=== PATIENT | female | born 1975 | race African-American/Black ===

== ENCOUNTER 2016-04-19 10:29 | Inpatient (IN) | payer MEDICAID ==
[2016-04-17 15:09] VITALS: Ht 165.1 cm; Wt 140.4 kg
[2016-04-17 15:18] VITALS: BP_SYST 140; RESP 20; TEMP 97.9
[2016-04-19] VITALS (19 sets, daily range): BP systolic 120–163; RESP 13–34; TEMP 96.9–98.6
[~2016-04-19] VITALS: Ht 165.1 cm; Wt 140.4 kg
[~2016-04-19 10:29] MED LIST: ACETAMINOPHEN 1,000 MG/100 ML IV ONE; BUPIVACAINE 0.5% PF 30 ML NERVEBLOCK ONE; DILAUDID 1 MG/ML AMP IV ONE; FAMOTIDINE 20 MG INJ IV ONE; FENTANYL 100 MCG/2 ML AMP IV ONE; GLYCOPYRROLATE 0.2 MG/ML VIAL IV ONE; LIDOCAINE 1% BUFFERED 1 ML SYR INTRADERM PRN; LIDOCAINE 2% SYR 5 ML IV ONE; MANNITOL 25% IV ONE; MIDAZOLAM 2 MG/2 ML INJ IV ONE; NEOSTIGMINE 10 MG/10 ML VIAL IV ONE; ONDANSETRON 4 MG VIAL IV ONE; PROPOFOL 20 ML VIAL IV ONE; ROCURONIUM 50 MG VIAL IV ONE; SCOPOLAMINE PATCH TRANSDERM ONE
[2016-04-19] MEDS ORDERED: CLINDAMYCIN 600 MG in DEXTROSE 5% 50 ML IV ONE (10:50)
[2016-04-19] MEDS ORDERED: LEVOFLOXACIN 500 MG/100 ML 100 ML IV ONE (10:55)
[2016-04-19] MEDS: LACT RINGERS 1,000 ML IV SCH ×2 (11:08→15:12)
[2016-04-19] MEDS ORDERED: MORPHINE 2 MG/ML SYR IV PRN (11:30)
[2016-04-19] MEDS ORDERED: DILAUDID 1 MG/ML AMP IV PRN (11:30)
[2016-04-19] MEDS ORDERED: MEPERIDINE 25 MG/ML IV PRN (11:30)
[2016-04-19] MEDS ORDERED: ONDANSETRON 4 MG VIAL IV PRN (11:30)
[2016-04-19] MEDS ORDERED: OXYCODONE 5 MG TAB PO PRN (11:30)
[2016-04-19] MEDS ORDERED: MORPHINE 4 MG/ML SYR IV PRN (11:30)
[2016-04-19] MEDS ORDERED: ACETAMINOPHEN 325 MG TAB PO PRN ×2 (14:50)
[2016-04-19] MEDS ORDERED: LORAZEPAM 2 MG/ML VIAL IV PRN (14:50)
[2016-04-19] MEDS ORDERED: PROMETHAZINE 25 MG/ML VIAL ONE (15:24)
[2016-04-19] MEDS ORDERED: PROMETHAZINE 25 MG/ML VIAL IV ONE (15:25)
[2016-04-19] MEDS: FLUOXETINE 20 MG CAP PO SCH (16:18)
[2016-04-19] MEDS: PANTOPRAZOLE 40 MG TAB PO SCH (16:20)
[2016-04-19] MEDS: MORPHINE 4 MG/ML SYR IV PRN ×3 (17:13→23:13)
[2016-04-19] MEDS: LEVOFLOXACIN 500 MG/100 ML 100 ML IV SCH (17:19)
[2016-04-19] MEDS: CLINDAMYCIN 600 MG in DEXTROSE 5% 50 ML IV SCH ×2 (18:45→23:25)
[2016-04-19] MEDS: DOCUSATE SOD 100 MG CAP PO SCH (20:15)
[2016-04-19] MEDS: BUSPIRONE HCL 15 MG TAB PO SCH (20:15)
[2016-04-19] MEDS: ONDANSETRON 4 MG VIAL IV PUSH PRN (23:13)
[2016-04-19] MEDS: SODIUM CHLORIDE 0.9% 1,000 ML IV SCH (23:25)
[2016-04-20] MEDS: MORPHINE 4 MG/ML SYR IV PRN ×8 (01:16→21:36)
[2016-04-20 03:34] VITALS: BP_SYST 116; RESP 16; TEMP 98.3
[2016-04-20] MEDS: ONDANSETRON 4 MG VIAL IV PUSH PRN ×3 (05:38→18:05)
[2016-04-20] MEDS: SODIUM CHLORIDE 0.9% 1,000 ML IV SCH (05:38)
[2016-04-20] MEDS: CLINDAMYCIN 600 MG in DEXTROSE 5% 50 ML IV SCH ×2 (05:38→11:03)
[2016-04-20] MEDS: PANTOPRAZOLE 40 MG TAB PO SCH (05:39)
[2016-04-20 07:21] VITALS: BP_SYST 121; RESP 15; TEMP 98
[2016-04-20] MEDS ORDERED: SODIUM CHLORIDE 0.9% 1,000 ML IV SCH (07:30)
[2016-04-20] MEDS: LEVOFLOXACIN 500 MG/100 ML 100 ML IV SCH (08:55)
[2016-04-20] MEDS: DOCUSATE SOD 100 MG CAP PO SCH ×2 (08:55→21:12)
[2016-04-20] MEDS: FLUOXETINE 20 MG CAP PO SCH (08:56)
[2016-04-20] MEDS ORDERED: REMOVE TRANSDERMAL PATCH TOPICAL ONE (11:25)
[2016-04-20 11:44] VITALS: BP_SYST 115; RESP 15; TEMP 98
[2016-04-20 15:56] VITALS: BP_SYST 142; RESP 15; TEMP 97.9
[2016-04-20] MEDS: OXYCODONE 5 MG TAB PO PRN ×2 (18:00→22:22)
[2016-04-20 19:21] VITALS: BP_SYST 143; RESP 16; TEMP 98.9
[2016-04-20] MEDS: BUSPIRONE HCL 15 MG TAB PO SCH (21:13)
[2016-04-20 23:12] VITALS: BP_SYST 135; RESP 18; TEMP 99.3
[2016-04-21] MEDS: MORPHINE 4 MG/ML SYR IV PRN ×8 (00:15→21:42)
[2016-04-21] MEDS: ONDANSETRON 4 MG VIAL IV PUSH PRN (00:15)
[2016-04-21] MEDS ORDERED: CHLORASEPTIC 180 ML BTL PO PRN (01:10)
[2016-04-21] MEDS: OXYCODONE 5 MG TAB PO PRN ×5 (04:11→23:12)
[2016-04-21] MEDS: PANTOPRAZOLE 40 MG TAB PO SCH (04:18)
[2016-04-21 04:30] VITALS: BP_SYST 144; RESP 18; TEMP 99
[2016-04-21 07:10] VITALS: BP_SYST 134; RESP 12; TEMP 98.6
[2016-04-21] MEDS ORDERED: D5-1/2-NS W/KCL 10MEQ/L 1,000 ML IV SCH (08:35)
[2016-04-21] MEDS: DOCUSATE SOD 100 MG CAP PO SCH ×2 (09:12→19:23)
[2016-04-21] MEDS: FLUOXETINE 20 MG CAP PO SCH (09:12)
[2016-04-21 11:06] VITALS: BP_SYST 133; RESP 16; TEMP 97.9
[2016-04-21 15:01] VITALS: BP_SYST 138; RESP 16; TEMP 98.3
[2016-04-21] MEDS: BUSPIRONE HCL 15 MG TAB PO SCH (19:22)
[2016-04-21 20:10] VITALS: BP_SYST 122; RESP 16; TEMP 98.1
[2016-04-21] MEDS ORDERED: D5-1/2-NS W/KCL 20MEQ/L 1,000 ML IV SCH (20:15)
[2016-04-22 00:12] VITALS: BP_SYST 142; RESP 16; TEMP 98.3
[2016-04-22] MEDS: MORPHINE 4 MG/ML SYR IV PRN ×3 (00:32→06:08)
[2016-04-22 03:33] VITALS: BP_SYST 132; RESP 16; TEMP 98
[2016-04-22] MEDS: OXYCODONE 5 MG TAB PO PRN ×3 (03:48→12:36)
[2016-04-22] MEDS: PANTOPRAZOLE 40 MG TAB PO SCH (06:08)
[2016-04-22 07:29] VITALS: BP_SYST 134; RESP 16; TEMP 98
[2016-04-22] MEDS ORDERED: D5-1/2-NS W/KCL 20MEQ/L 1,000 ML IV SCH (07:40)
[2016-04-22] MEDS: FLUOXETINE 20 MG CAP PO SCH (08:21)
[2016-04-22] MEDS: DOCUSATE SOD 100 MG CAP PO SCH (08:21)
[2016-04-22] MEDS ORDERED: REMOVE SCOPALAMINE PATCH XX ONE (10:20)
[2016-04-22 11:49] VITALS: BP_SYST 118; RESP 16; TEMP 98.2
[2016-04-22 12:24] VITALS: BP_SYST 118; RESP 16; TEMP 98.2
== END 2016-04-22 14:41 | disposition home or self-care (01) | DRG 661 ==
LOC: SDS 10:29 → ENPENDDIS 10:29 → UNDOADMIN 10:29 → SDS 14:48 → 5THE 16:15 → SDS 16:15 → UNDODISIN 04-22 14:41
PROVIDERS: ADMIT Urology; ATTEND Urology
PROC: 8E0W4CZ Robotic Assisted Procedure of Trunk Region, Percutaneous Endoscopic Approach (ICD-10-PCS; 2016-04-19)
PROC: 0TB04ZZ Excision of Right Kidney, Percutaneous Endoscopic Approach (ICD-10-PCS; principal; 2016-04-19 11:20)
DX: N28.1 Cyst of kidney, acquired (principal); Z85.41 Personal history of malignant neoplasm of cervix uteri
CPT/HCPCS: 36415; 71020; 80048; 80053; 82570; 82947; 85014; 85018; 85025; 86850; 86900; 86901; 88307; 93005; 94799